=== PATIENT | female | born 1945 | race Caucasian/White ===

== ENCOUNTER 2018-09-06 05:28 | Inpatient (IN) ==
[2018-09-06] MEDS ORDERED: VANCOMYCIN 1,000 MG VIAL ONE (06:05)
[2018-09-06] MEDS ORDERED: ceFAZolin 1,000 MG VIAL ONE (06:05)
[2018-09-06] MEDS: LACTATED RINGERS 1,000 ML IV SCH (06:20)
[2018-09-06] MEDS ORDERED: ROPIVACAINE 0.5% 30 ML VIAL ONE (06:26)
[2018-09-06] MEDS ORDERED: VANCOMYCIN INJ 1,000 MG in SODIUM CHLORIDE 0.9% 250 ML IV ONE (06:30)
[2018-09-06] MEDS ORDERED: ceFAZolin 1,000 MG in SYRINGE 1 EACH IV ONE (06:30)
[2018-09-06] MEDS ORDERED: MAGNESIUM HYDROXIDE SUSP 30 ML UDCUP PO PRN (07:27)
[2018-09-06] MEDS ORDERED: LACTULOSE 20 GM/30 ML UDCUP PO PRN (07:33)
[2018-09-06] MEDS ORDERED: diphenhydrAMINE CAP 25 MG CAPSULE PO PRN (07:33)
[2018-09-06] MEDS ORDERED: ONDANSETRON 4 MG/2 ML VIAL IV PRN ×2 (07:33→09:32)
[2018-09-06] MEDS ORDERED: MORPHINE 4 MG/1 ML VIAL IV PRN (07:33)
[2018-09-06] MEDS ORDERED: BISACODYL 10 MG SUPP RECTAL PRN (07:33)
[2018-09-06] MEDS ORDERED: TEMAZEPAM 7.5 MG CAPSULE PO PRN (07:33)
[2018-09-06] MEDS ORDERED: GLUCAGON 1 MG VIAL IM PRN (07:37)
[2018-09-06] MEDS ORDERED: DEXTROSE 50% 25 GM/50 ML VIAL IV PRN (07:37)
[2018-09-06] MEDS ORDERED: TRANEXAMIC ACID 1,000 MG/10 ML VIAL ONE (07:53)
[2018-09-06] MEDS ORDERED: MIDAZOLAM 2 MG/2 ML VIAL ONE (09:06)
[2018-09-06] MEDS ORDERED: PROPOFOL 500 MG/50 ML BOTTLE IV ONE (09:06)
[2018-09-06] MEDS ORDERED: SEVOFLURANE 1 UNIT/15 MINUTE INH ONE (09:06)
[2018-09-06] MEDS ORDERED: SUCCINYLCHOLINE 200 MG/10 ML VIAL ONE (09:06)
[2018-09-06] MEDS ORDERED: LACTATED RINGERS 1,000 ML IV ONE (09:06)
[2018-09-06] MEDS ORDERED: fentaNYL 100 MCG/2 ML VIAL ONE (09:06)
[2018-09-06] MEDS ORDERED: ACETAMINOPHEN 1,000 MG/100 ML VIAL IV ONE (09:06)
[2018-09-06] MEDS ORDERED: ONDANSETRON 4 MG/2 ML VIAL ONE ×2 (09:06→09:30)
[2018-09-06] MEDS ORDERED: PHENYLEPHRINE 1 MG/10 ML SYRINGE IV ONE (09:07)
[2018-09-06] MEDS: HYDROmorphone 2 MG/1 ML VIAL IV PRN ×2 (09:29→09:35)
[2018-09-06] MEDS ORDERED: HYDROmorphone 2 MG/1 ML VIAL ONE (09:30)
[2018-09-06] MEDS: CHOLECALCIFEROL 5,000 UNIT TABLET PO SCH (11:49)
[2018-09-06] MEDS: MULTIVITAMIN (CENTRUM) TABLET PO SCH (11:50)
[2018-09-06] MEDS: metFORMIN 500 MG TABLET PO SCH (11:50)
[2018-09-06] MEDS: CALCIUM (CARBONATE)/VITAMIN D 600 MG-400 UNIT TABLET PO SCH ×2 (11:50→20:56)
[2018-09-06] MEDS: POTASSIUM CHLORIDE 20 MEQ TABLET PO SCH ×2 (11:51→20:53)
[2018-09-06] MEDS: MELOXICAM 7.5 MG TABLET PO SCH (11:51)
[2018-09-06] MEDS: FUROSEMIDE 40 MG TABLET PO SCH ×2 (11:51→15:09)
[2018-09-06] MEDS: NIACIN ER 500 MG TABLET PO SCH (11:52)
[2018-09-06] MEDS: CARBIDOPA/LEVODOPA CR 50-200 MG TABLET PO SCH (11:52)
[2018-09-06] MEDS: PANTOPRAZOLE 40 MG TABLET PO SCH (11:52)
[2018-09-06] MEDS: ESTRADIOL 1 MG TABLET PO SCH (11:52)
[2018-09-06] MEDS: DOCUSATE SODIUM 100 MG CAPSULE PO SCH ×2 (11:52→20:53)
[2018-09-06] MEDS: BACLOFEN 10 MG TABLET PO SCH ×3 (11:53→20:57)
[2018-09-06] MEDS: CARVEDILOL 3.125 MG TABLET PO SCH ×2 (11:53→20:53)
[2018-09-06] MEDS: OMEGA 3 ACID ETHYL ESTERS 1 GM CAPSULE PO SCH (11:53)
[2018-09-06] MEDS: LYSINE 500 MG TABLET PO SCH (11:54)
[2018-09-06 12:18] LABS: Basophils # 0.1 10*3/uL (0.0-0.2); Basophils % 0.4 % (0.0-0.8); Eosinophils # 0.1 10*3/uL (0.0-0.87); Eosinophils % 0.7 % (0.00-10.9); Hematocrit 38.2 VOL% (35.7-47.0); Hemoglobin 11.8 GM/DL (12.0-16.0); Immature Granulocytes % 0.6 %; Lymphocytes # 2.2 10*3/uL (1.4-4.0); Lymphocytes % 13.5 % (21.3-54.2); Mean Corpuscular HGB Conc 30.9 GM/DL (32-36); Mean Corpuscular Hemoglobin 26 PG (27-34); Mean Corpuscular Volume 85.5 FL (87-102); Mean Platelet Volume 11.2 FL (9.6-12.0); Monocytes # 1.1 10*3/uL (0.11-0.8); Monocytes % 6.7 % (1.7-12.7); Neutrophils # 12.5 10*3/uL (1.4-7.4); Neutrophils % 78.1 % (38.7-73.9); Platelet Count 332 T/CUMM (130-400); Red Blood Count 4.47 MC/CUMM (3.8-5.5); Red Cell Distribution Width 14.6 % (9.3-17.3)
[2018-09-06 12:37] LABS: Calcium 9.4 MG/DL (8.5-10.1); Osmolality,Calculated 281.4 MOS/KG (273-304); Potassium 3.8 MMOL/L (3.5-5.1)
[2018-09-06] MEDS: INSULIN REGULAR 100 UNIT/ML SUBCUT SCH ×3 (13:44→21:23)
[2018-09-06] MEDS ORDERED: TUBERCULIN SKIN TEST 0.1 ML SYRINGE INTRADERM ONE (14:15)
[2018-09-06] MEDS: ceFAZolin 1,000 MG in SYRINGE 1 EACH IV SCH ×2 (15:09→22:10)
[2018-09-06] MEDS: FONDAPARINUX 2.5 MG/0.5 ML SYRINGE SUBCUT SCH (17:05)
[2018-09-06] MEDS: SIMVASTATIN 40 MG TABLET PO SCH (20:53)
[2018-09-06] MEDS: FAMOTIDINE 20 MG TABLET PO SCH (20:53)
[2018-09-06] MEDS: BACLOFEN 20 MG TABLET PO SCH (20:56)
[2018-09-06] MEDS: FENOFIBRATE 160 MG TABLET PO SCH (20:57)
[2018-09-06] MEDS: DULoxetine 30 MG CAPSULE PO SCH (20:57)
[2018-09-07 05:52] LABS: Basophils # 0.1 10*3/uL (0.0-0.2); Basophils % 0.5 % (0.0-0.8); Eosinophils # 0.3 10*3/uL (0.0-0.87); Eosinophils % 2.6 % (0.00-10.9); Hematocrit 33.7 VOL% (35.7-47.0); Hemoglobin 10.3 GM/DL (12.0-16.0); Immature Granulocytes % 0.4 %; Immature Granulocytes Absolute 0.05 #; Lymphocytes # 1.5 10*3/uL (1.4-4.0); Lymphocytes % 13.1 % (21.3-54.2); Mean Corpuscular HGB Conc 30.6 GM/DL (32-36); Mean Corpuscular Hemoglobin 26 PG (27-34); Mean Platelet Volume 11.7 FL (9.6-12.0); Monocytes % 8.7 % (1.7-12.7); Neutrophils # 8.8 10*3/uL (1.4-7.4); Neutrophils % 74.7 % (38.7-73.9); Platelet Count 278 T/CUMM (130-400); Red Blood Count 3.92 MC/CUMM (3.8-5.5); Red Cell Distribution Width 14.7 % (9.3-17.3); White Blood Count 11.8 T/CUMM (4-12)
[2018-09-07 05:57] LABS: Calcium 8.9 MG/DL (8.5-10.1); Osmolality,Calculated 278.5 MOS/KG (273-304); Potassium 3.7 MMOL/L (3.5-5.1)
[2018-09-07] MEDS: LEVOTHYROXINE 100 MCG TABLET PO SCH (06:06)
[2018-09-07] MEDS: DOCUSATE SODIUM 100 MG CAPSULE PO SCH ×2 (08:28→20:14)
[2018-09-07] MEDS: NIACIN ER 500 MG TABLET PO SCH (08:28)
[2018-09-07] MEDS: POTASSIUM CHLORIDE 20 MEQ TABLET PO SCH ×2 (08:28→20:14)
[2018-09-07] MEDS: PANTOPRAZOLE 40 MG TABLET PO SCH (08:28)
[2018-09-07] MEDS: CARVEDILOL 3.125 MG TABLET PO SCH ×2 (08:28→20:14)
[2018-09-07] MEDS: CALCIUM (CARBONATE)/VITAMIN D 600 MG-400 UNIT TABLET PO SCH ×2 (08:28→20:14)
[2018-09-07] MEDS: ESTRADIOL 1 MG TABLET PO SCH (08:28)
[2018-09-07] MEDS: metFORMIN 500 MG TABLET PO SCH (08:28)
[2018-09-07] MEDS: CHOLECALCIFEROL 5,000 UNIT TABLET PO SCH (08:28)
[2018-09-07] MEDS: INSULIN REGULAR 100 UNIT/ML SUBCUT SCH ×4 (08:29→20:15)
[2018-09-07] MEDS: MULTIVITAMIN (CENTRUM) TABLET PO SCH (08:29)
[2018-09-07] MEDS: LACTATED RINGERS 1,000 ML IV SCH (08:29)
[2018-09-07] MEDS: BACLOFEN 10 MG TABLET PO SCH ×3 (08:29→20:20)
[2018-09-07] MEDS: FUROSEMIDE 40 MG TABLET PO SCH ×2 (08:29→17:19)
[2018-09-07] MEDS: OMEGA 3 ACID ETHYL ESTERS 1 GM CAPSULE PO SCH (08:29)
[2018-09-07] MEDS: CARBIDOPA/LEVODOPA CR 50-200 MG TABLET PO SCH (08:29)
[2018-09-07] MEDS: LYSINE 500 MG TABLET PO SCH (08:30)
[2018-09-07] MEDS: PROMETHAZINE 25 MG/1 ML VIAL IM PRN (08:46)
[2018-09-07] MEDS: FONDAPARINUX 2.5 MG/0.5 ML SYRINGE SUBCUT SCH (17:20)
[2018-09-07] MEDS: NON-FORMULARY MEDICATION (Liraglutide [Victoza 3-Pak] 1.8 MG) SQ SCH (17:59)
[2018-09-07] MEDS: SIMVASTATIN 40 MG TABLET PO SCH (20:14)
[2018-09-07] MEDS: FAMOTIDINE 20 MG TABLET PO SCH (20:14)
[2018-09-07] MEDS: DULoxetine 30 MG CAPSULE PO SCH (20:14)
[2018-09-07] MEDS: BACLOFEN 20 MG TABLET PO SCH (20:14)
[2018-09-07] MEDS: FENOFIBRATE 160 MG TABLET PO SCH (20:19)
[2018-09-08] MEDS: LACTATED RINGERS 1,000 ML IV SCH (03:49)
[2018-09-08] MEDS: BACLOFEN 10 MG TABLET PO SCH ×3 (04:56→16:50)
[2018-09-08] MEDS: INSULIN REGULAR 100 UNIT/ML SUBCUT SCH ×4 (07:57→20:18)
[2018-09-08] MEDS: NIACIN ER 500 MG TABLET PO SCH (08:30)
[2018-09-08] MEDS: ESTRADIOL 1 MG TABLET PO SCH (08:30)
[2018-09-08] MEDS: MELOXICAM 7.5 MG TABLET PO SCH (08:31)
[2018-09-08] MEDS: metFORMIN 500 MG TABLET PO SCH (08:31)
[2018-09-08] MEDS: DOCUSATE SODIUM 100 MG CAPSULE PO SCH ×2 (08:31→20:17)
[2018-09-08] MEDS: CHOLECALCIFEROL 5,000 UNIT TABLET PO SCH (08:31)
[2018-09-08] MEDS: PANTOPRAZOLE 40 MG TABLET PO SCH (08:31)
[2018-09-08] MEDS: LEVOTHYROXINE 100 MCG TABLET PO SCH (08:31)
[2018-09-08] MEDS: CARVEDILOL 3.125 MG TABLET PO SCH ×2 (08:31→20:18)
[2018-09-08] MEDS: POTASSIUM CHLORIDE 20 MEQ TABLET PO SCH ×2 (08:32→20:18)
[2018-09-08] MEDS: CALCIUM (CARBONATE)/VITAMIN D 600 MG-400 UNIT TABLET PO SCH ×2 (08:32→20:17)
[2018-09-08] MEDS: MULTIVITAMIN (CENTRUM) TABLET PO SCH (08:32)
[2018-09-08] MEDS: FUROSEMIDE 40 MG TABLET PO SCH ×2 (08:32→15:09)
[2018-09-08] MEDS: OMEGA 3 ACID ETHYL ESTERS 1 GM CAPSULE PO SCH (08:32)
[2018-09-08] MEDS: CARBIDOPA/LEVODOPA CR 50-200 MG TABLET PO SCH (08:32)
[2018-09-08] MEDS: LYSINE 500 MG TABLET PO SCH (08:37)
[2018-09-08] MEDS: PROMETHAZINE 25 MG/1 ML VIAL IM PRN (10:51)
[2018-09-08] MEDS: NON-FORMULARY MEDICATION (Liraglutide [Victoza 3-Pak] 1.8 MG) SQ SCH (16:50)
[2018-09-08] MEDS: FONDAPARINUX 2.5 MG/0.5 ML SYRINGE SUBCUT SCH (17:04)
[2018-09-08] MEDS: DULoxetine 30 MG CAPSULE PO SCH (20:17)
[2018-09-08] MEDS: SIMVASTATIN 40 MG TABLET PO SCH (20:17)
[2018-09-08] MEDS: FAMOTIDINE 20 MG TABLET PO SCH (20:18)
[2018-09-08] MEDS: FENOFIBRATE 160 MG TABLET PO SCH (20:18)
[2018-09-08] MEDS: BACLOFEN 20 MG TABLET PO SCH (20:18)
[2018-09-09] MEDS: LACTATED RINGERS 1,000 ML IV SCH (00:38)
[2018-09-09] MEDS: BACLOFEN 10 MG TABLET PO SCH (05:10)
[2018-09-09] MEDS: LEVOTHYROXINE 100 MCG TABLET PO SCH (05:13)
[2018-09-09 07:47] VITALS: BP 136/66
[2018-09-09] MEDS: INSULIN REGULAR 100 UNIT/ML SUBCUT SCH (09:41)
[2018-09-09] MEDS: ESTRADIOL 1 MG TABLET PO SCH (09:53)
[2018-09-09] MEDS: MULTIVITAMIN (CENTRUM) TABLET PO SCH (09:53)
[2018-09-09] MEDS: DOCUSATE SODIUM 100 MG CAPSULE PO SCH (09:54)
[2018-09-09] MEDS: CHOLECALCIFEROL 5,000 UNIT TABLET PO SCH (09:55)
[2018-09-09] MEDS: metFORMIN 500 MG TABLET PO SCH (09:55)
[2018-09-09] MEDS: CALCIUM (CARBONATE)/VITAMIN D 600 MG-400 UNIT TABLET PO SCH (09:55)
[2018-09-09] MEDS: PANTOPRAZOLE 40 MG TABLET PO SCH (09:56)
[2018-09-09] MEDS: FUROSEMIDE 40 MG TABLET PO SCH (09:56)
[2018-09-09] MEDS: CARVEDILOL 3.125 MG TABLET PO SCH (09:57)
[2018-09-09] MEDS: CARBIDOPA/LEVODOPA CR 50-200 MG TABLET PO SCH (09:57)
[2018-09-09] MEDS: POTASSIUM CHLORIDE 20 MEQ TABLET PO SCH (09:58)
[2018-09-09] MEDS: OMEGA 3 ACID ETHYL ESTERS 1 GM CAPSULE PO SCH (09:58)
[2018-09-09] MEDS: NIACIN ER 500 MG TABLET PO SCH (10:00)
[2018-09-09] MEDS: LYSINE 500 MG TABLET PO SCH (10:00)
== END 2018-09-09 11:00 | disposition swing bed (61) | DRG 470 ==
LOC: N.OR 05:28 → N.SDSINP 05:29 → N.3E 07:28
PROVIDERS: ADMIT Orthopaedic Surgery; ATTEND Orthopaedic Surgery